=== PATIENT | female | born 1940 | race Caucasian/White ===

== ENCOUNTER 2018-05-09 06:27 | Inpatient (IN) | payer OTHER ==
[~2018-05-09] VITALS: Ht 147.3 cm; Wt 79.4 kg
[~2018-05-09 06:27] MED LIST: BENADRYL ALLERG25 MG PO; DETROL LA2 MG PO; DIOVAN160 MG PO; GLIMEPIRIDE1 M1 PO; IMDUR30 MG PO; LAC PO; LASIX20 MG PO; LIPI10 PO; MAC100 PO; METOPROLOL TART25 M1 PO; NOR10 PO; PAXIL10 MG PO; POTASSIUM CHLO10 ME2 PO; PROAIR HFA0.09 MG/A1 INH; TYLENOL WITH CO1 TA2 PO; XANAX0.5 MG PO
[2018-05-09 06:30] VITALS: Ht 147.3 cm; Wt 79.4 kg
[2018-05-09 07:42] LABS: BASOPHIL % 0.7 % (0-2); PLATELET COUNT 301 x10^3mcL (130-400); RED CELL DISTRIBUTION WIDTH 13.8 % (11.5-14.5)
[2018-05-09 07:54] LABS: CARBON DIOXIDE 24.5 mmol/L (21-32); CHLORIDE SERUM 99 mmol/L (98-107); CREATININE SERUM 1.9 mg/dL (0.6-1.0); GLUCOSE SERUM 212 mg/dL (74-106); POTASSIUM SERUM 3.7 mmol/L (3.5-5.1); SODIUM SERUM 133 mmol/L (136-145)
[2018-05-09 08:05] LABS: ALBUMIN 3.7 g/dL (3.4-5.0); ALKALINE PHOSPHATASE 107 U/L (46-116); ALT/SGPT 19 U/L (14-59); AST/SGOT 19 U/L (15-37); BILIRUBIN TOTAL 0.46 mg/dL (0.20-1.00); CHOLESTEROL 145 mg/dL (<200); HDL CHOLESTEROL 45 mg/dL (40-60); PHOSPHOROUS 4.5 mg/dL (2.5-4.9); TOTAL PROTEIN, SERUM 7.7 g/dL (6.4-8.2)
[2018-05-09 10:46] VITALS: BP 160/74
[2018-05-09 11:35] VITALS: BP 145/62
[2018-05-09 11:51] LABS: CHOLESTEROL/HDL RATIO 3.2
[2018-05-09] MEDS ORDERED: TRAZODONE50 M1 PO (12:32)
[2018-05-09] MEDS ORDERED: ACETAMINOPHEN A1 TAB PO (12:32)
[2018-05-09] MEDS ORDERED: CHLORTHALIDONE25 MG PO (12:33)
[2018-05-09] MEDS ORDERED: OXYBUTYNIN CHLOR5 MG PO (12:34)
[2018-05-09] MEDS ORDERED: ALLOPURINOL100 MG PO (12:35)
[2018-05-09] MEDS ORDERED: LYRICA50 M1 PO (12:35)
[2018-05-09 12:38] LABS: microscopic required? NO
[2018-05-09] MEDS ORDERED: VITAMIN D32000 I2 PO (12:38)
[2018-05-09 12:40] LABS: FREE T4 1.43 ng/dL (0.76-1.46); FREE THYROXINE INDEX 3.7 ug/dL (1.4-4.5); T4(THYROXINE) 10.2 ug/dL (4.7-13.3)
[2018-05-09 12:51] LABS: UA SPECIFIC GRAVITY <=1.005 (1.005-1.035); urine erythrocyte NEGATIVE (NEGATIVE)
[2018-05-09 12:56] LABS: T3 TOTAL 0.79 ng/mL
[2018-05-09 16:15] VITALS: BP 148/67
[2018-05-09 18:08] VITALS: BP 155/71
[2018-05-09 18:41] VITALS: BP 141/60
[2018-05-09 21:06] VITALS: BP 145/74
[2018-05-10 06:02] VITALS: BP 150/64
[2018-05-10 06:40] LABS: BASOPHIL % 0.4 % (0-2); PLATELET COUNT 334 x10^3mcL (130-400); RED CELL DISTRIBUTION WIDTH 13.9 % (11.5-14.5)
[2018-05-10 06:52] LABS: CALCIUM 9.5 mg/dL (8.5-10.1); CARBON DIOXIDE 24.4 mmol/L (21-32); CHLORIDE SERUM 98 mmol/L (98-107); GLUCOSE SERUM 174 mg/dL (74-106); POTASSIUM SERUM 4.1 mmol/L (3.5-5.1); SODIUM SERUM 133 mmol/L (136-145)
[2018-05-10 09:12] VITALS: BP 131/74
[2018-05-10 12:10] VITALS: BP 152/66
[2018-05-10] MEDS ORDERED: CIP500 PO (12:15)
[2018-05-10] MEDS ORDERED: TOP50 PO (12:15)
[2018-05-10 13:56] VITALS: BP 152/66
== END 2018-05-10 14:35 | disposition home or self-care (01) | DRG 205 ==
LOC: ED 06:27 → DU 08:54
PROVIDERS: Emergency Medicine; Internal Medicine
DX: M94.0 Chondrocostal junction syndrome [Tietze] (principal); N17.0 Acute kidney failure with tubular necrosis; N18.4 Chronic kidney disease, stage 4 (severe); F11.20 Opioid dependence, uncomplicated; N39.0 Urinary tract infection, site not specified; E87.1 Hypo-osmolality and hyponatremia; I50.30 Unspecified diastolic (congestive) heart failure; I12.9 Hypertensive chronic kidney disease with stage 1 through stage 4 chronic kidney disease, or unspecified chronic kidney disease; E11.22 Type 2 diabetes mellitus with diabetic chronic kidney disease; E11.65 Type 2 diabetes mellitus with hyperglycemia; G89.29 Other chronic pain; M19.90 Unspecified osteoarthritis, unspecified site; E78.5 Hyperlipidemia, unspecified; F32.9 Major depressive disorder, single episode, unspecified; Z68.36 Body mass index [BMI] 36.0-36.9, adult
CPT/HCPCS: 83880; 84439; A9500; C9113; J1644; J2270; J2405; J2785; J7030; Q0092

== ENCOUNTER 2018-05-17 06:19 | Emergency (ER) | payer OTHER ==
[~2018-05-17] VITALS: Ht 152.4 cm; Wt 78.9 kg
[~2018-05-17 06:19] MED LIST changes: +ACETAMINOPHEN A1 TAB PO; +ALLOPURINOL100 MG PO; +CHLORTHALIDONE25 MG PO; +CIP500 PO; +LYRICA50 M1 PO; +OXYBUTYNIN CHLOR5 MG PO; +TOP50 PO; +TRAZODONE50 M1 PO; +VITAMIN D32000 I2 PO
[2018-05-17 06:28] VITALS: Ht 152.4 cm; Wt 78.9 kg
[2018-05-17 07:42] LABS: BASOPHIL % 0.5 % (0-2); PLATELET COUNT 328 x10^3mcL (130-400); RED CELL DISTRIBUTION WIDTH 14.1 % (11.5-14.5)
[2018-05-17 07:52] LABS: CALCIUM 9.2 mg/dL (8.5-10.1); CARBON DIOXIDE 25.2 mmol/L (21-32); CHLORIDE SERUM 99 mmol/L (98-107); CREATININE SERUM 2.1 mg/dL (0.6-1.0); GLUCOSE SERUM 182 mg/dL (74-106); SODIUM SERUM 133 mmol/L (136-145)
[2018-05-17 08:04] LABS: ALBUMIN 3.9 g/dL (3.4-5.0); ALKALINE PHOSPHATASE 135 U/L (46-116); ALT/SGPT 22 U/L (14-59); AMYLASE 38 U/L (25-115); AST/SGOT 18 U/L (15-37); BILIRUBIN TOTAL 0.51 mg/dL (0.20-1.00); CHOLESTEROL 138 mg/dL (<200); HDL CHOLESTEROL 51 mg/dL (40-60); LIPASE 216 IU/L (73-393); MAGNESIUM 3.4 mg/dL (1.8-2.4); TOTAL PROTEIN, SERUM 8.2 g/dL (6.4-8.2)
[2018-05-17 08:12] LABS: UA SPECIFIC GRAVITY <=1.005 (1.005-1.035); microscopic required? YES; urine erythrocyte NEGATIVE (NEGATIVE)
[2018-05-17 10:00] LABS: AMPHETAMINE QUAL UR NONE DETECTED (See below)
[2018-05-17 12:01] VITALS: BP 142/78
== END 2018-05-17 12:01 | disposition home or self-care (01) ==
LOC: ED 06:19
PROVIDERS: Emergency Medicine
DX: I12.9 Hypertensive chronic kidney disease with stage 1 through stage 4 chronic kidney disease, or unspecified chronic kidney disease (principal); E11.22 Type 2 diabetes mellitus with diabetic chronic kidney disease; N18.4 Chronic kidney disease, stage 4 (severe); E11.40 Type 2 diabetes mellitus with diabetic neuropathy, unspecified; I44.7 Left bundle-branch block, unspecified; E78.00 Pure hypercholesterolemia, unspecified; F03.90 Unspecified dementia, unspecified severity, without behavioral disturbance, psychotic disturbance, mood disturbance, and anxiety; N39.0 Urinary tract infection, site not specified; F32.9 Major depressive disorder, single episode, unspecified; J45.909 Unspecified asthma, uncomplicated
CPT/HCPCS: 36415; G0480; J1100; J1885; Q0092

== ENCOUNTER 2020-10-05 21:51 | Inpatient (IN) | payer OTHER, SELFPAY ==
[~2020-10-05] VITALS: Ht 162.6 cm; Wt 74.8 kg
[~2020-10-05 21:51] MED LIST changes: +BACDS PO; +DIT5 PO; +XAN25 PO
[2020-10-05 22:02] VITALS: Ht 162.6 cm; Wt 74.8 kg
[2020-10-05 22:24] LABS: BASOPHIL % 0.6 % (0.2-1.3); PLATELET COUNT 290 x10^3mcL (179-408); RED CELL DISTRIBUTION WIDTH 13.9 % (12.3-17.7)
[2020-10-05 22:25] VITALS: BP 123/72
[2020-10-05 23:09] LABS: ALKALINE PHOSPHATASE 103 U/L (46-116); ALT/SGPT 24 U/L (14-59); AST/SGOT 27 U/L (15-37); BILIRUBIN TOTAL 0.45 mg/dL (0.20-1.00); CALCIUM 7.9 mg/dL (8.5-10.1); CARBON DIOXIDE 19.9 mmol/L (21-32); CHLORIDE SERUM 97 mmol/L (98-107); CREATININE SERUM 3.6 mg/dL (0.6-1.0); GLUCOSE SERUM 298 mg/dL (74-106); LACTIC DEHYDROGENASE (LDH) 385 U/L (100-190); POTASSIUM SERUM 4.4 mmol/L (3.5-5.1); SODIUM SERUM 131 mmol/L (136-145); TOTAL PROTEIN, SERUM 6.9 g/dL (6.4-8.2)
[2020-10-05 23:11] LABS: ALBUMIN 2.6 g/dL (3.4-5.0)
[2020-10-05 23:22] LABS: C REACTIVE PROTEIN 26.1 mg/dL (<=0.9)
[2020-10-07 04:01] LABS: PLATELET COUNT 379 x10^3mcL (179-408)
[2020-10-07 04:26] LABS: BAND NEUTROPHIL 0 % (0-10); BASOPHIL 0 % (0-2); MONOCYTE 3 % (0-7); SEGMENTED NEUTROPHILS 90 % (37-75)
[2020-10-07 04:27] LABS: PLATELET MORPHOLOGY PLATELETS NORMAL; rbc morphology (normal/abnorm) NORMAL (NORMAL)
[2020-10-07 04:28] LABS: ALBUMIN 2.6 g/dL (3.4-5.0); ALKALINE PHOSPHATASE 117 U/L (46-116); ALT/SGPT 23 U/L (14-59); AST/SGOT 24 U/L (15-37); BILIRUBIN TOTAL 0.42 mg/dL (0.20-1.00); CALCIUM 8.9 mg/dL (8.5-10.1); CARBON DIOXIDE 20.7 mmol/L (21-32); CHLORIDE SERUM 94 mmol/L (98-107); CREATININE SERUM 3.3 mg/dL (0.6-1.0); GLUCOSE SERUM 179 mg/dL (74-106); POTASSIUM SERUM 4.1 mmol/L (3.5-5.1); SODIUM SERUM 128 mmol/L (136-145); TOTAL PROTEIN, SERUM 7.4 g/dL (6.4-8.2)
[2020-10-07 14:58] LABS: UA SPECIFIC GRAVITY 1.015 (1.005-1.035); microscopic required? YES; urine erythrocyte NEGATIVE (NEGATIVE)
[2020-10-07 15:25] LABS: CREATININE UR 59.2 mg/dL
[2020-10-07 23:32] VITALS: BP 127/59
[2020-10-08 06:11] VITALS: BP 132/59
[2020-10-08 09:14] LABS: ALKALINE PHOSPHATASE 121 U/L (46-116); ALT/SGPT 21 U/L (14-59); AST/SGOT 28 U/L (15-37); BILIRUBIN TOTAL 0.71 mg/dL (0.20-1.00); CALCIUM 8.8 mg/dL (8.5-10.1); CHLORIDE SERUM 97 mmol/L (98-107); GLUCOSE SERUM 233 mg/dL (74-106); POTASSIUM SERUM 4.1 mmol/L (3.5-5.1); SODIUM SERUM 131 mmol/L (136-145)
[2020-10-08 09:15] VITALS: BP 146/64
[2020-10-08 09:28] LABS: BASOPHIL % 0.1 % (0-2); PLATELET COUNT 405 x10^3mcL (130-400); RED CELL DISTRIBUTION WIDTH 13.9 % (11.5-14.5)
[2020-10-08 09:29] LABS: ALBUMIN 2.4 g/dL (3.4-5.0)
[2020-10-08 12:23] VITALS: BP 151/51
[2020-10-08 17:29] VITALS: BP 146/74
[2020-10-08 20:10] VITALS: BP 135/60
[2020-10-09 05:30] VITALS: BP 112/64
[2020-10-09 08:05] LABS: BASOPHIL % 0.1 % (0.2-1.3); RED CELL DISTRIBUTION WIDTH 14.3 % (12.3-17.7)
[2020-10-09 08:52] LABS: PLATELET COUNT 432 x10^3mcL (179-408)
[2020-10-09 08:54] LABS: ALKALINE PHOSPHATASE 134 U/L (46-116); ALT/SGPT 22 U/L (14-59); AST/SGOT 27 U/L (15-37); BILIRUBIN TOTAL 0.7 mg/dL (0.20-1.00); CALCIUM 8.8 mg/dL (8.5-10.1); CARBON DIOXIDE 16.6 mmol/L (21-32); CHLORIDE SERUM 103 mmol/L (98-107); CREATININE SERUM 2.9 mg/dL (0.6-1.0); GLUCOSE SERUM 247 mg/dL (74-106); POTASSIUM SERUM 3.6 mmol/L (3.5-5.1); SODIUM SERUM 142 mmol/L (136-145); TOTAL PROTEIN, SERUM 7.3 g/dL (6.4-8.2)
[2020-10-09 09:01] VITALS: BP 152/71
[2020-10-09 09:58] LABS: ALBUMIN 2.6 g/dL (3.4-5.0); C REACTIVE PROTEIN 18.7 mg/dL (<=0.9)
[2020-10-09 12:29] VITALS: BP 151/72
== END 2020-10-09 20:30 | DRG 871 ==
LOC: ED 21:51 → DU 10-06 00:25 → IW 10-09 15:54
PROVIDERS: Emergency Medicine; Internal Medicine; ADMIT Family Medicine; ATTEND Family Medicine
PROC: 5A09457 Assistance with Respiratory Ventilation, 24-96 Consecutive Hours, Continuous Positive Airway Pressure (ICD-10-PCS; principal; 2020-10-06)
PROC: 0BH17EZ Insertion of Endotracheal Airway into Trachea, Via Natural or Artificial Opening (ICD-10-PCS; 2020-10-09)
DX: A41.89 Other specified sepsis (principal); J96.01 Acute respiratory failure with hypoxia; U07.1 COVID-19; N17.0 Acute kidney failure with tubular necrosis; J12.82 Pneumonia due to coronavirus disease 2019; I13.0 Hypertensive heart and chronic kidney disease with heart failure and stage 1 through stage 4 chronic kidney disease, or unspecified chronic kidney disease; N18.4 Chronic kidney disease, stage 4 (severe); D68.9 Coagulation defect, unspecified; E87.1 Hypo-osmolality and hyponatremia; E87.2 Acidosis; I50.9 Heart failure, unspecified; F32.9 Major depressive disorder, single episode, unspecified; I46.9 Cardiac arrest, cause unspecified; F41.9 Anxiety disorder, unspecified; E78.00 Pure hypercholesterolemia, unspecified; M19.90 Unspecified osteoarthritis, unspecified site; E11.22 Type 2 diabetes mellitus with diabetic chronic kidney disease; E11.65 Type 2 diabetes mellitus with hyperglycemia; E66.9 Obesity, unspecified; Z87.440 Personal history of urinary (tract) infections; Z68.26 Body mass index [BMI] 26.0-26.9, adult; Z82.49 Family history of ischemic heart disease and other diseases of the circulatory system; Z79.899 Other long term (current) drug therapy
CPT/HCPCS: 36600; 82962; 83880; 85378; 87804; C9113; G0378; J0696; J1100; J1644; J1940; J2060; J3490; J3535; J7030; U0003